=== PATIENT | female | born 1985 | race Caucasian/White ===

== ENCOUNTER 2017-11-15 02:30 | Inpatient (IN) | payer OTHER ==
[2017-11-15] MEDS ORDERED: BUTORPHANOL 1 MG/ML INJ IV PRN (02:48)
[2017-11-15] MEDS ORDERED: Ringers Lactate 1,000 ML IV PRN (02:48)
[2017-11-15] MEDS ORDERED: Ringers Lactate 1,000 ML IV SCH (03:00)
[2017-11-15 03:34] LABS: RPR Titer ND
[2017-11-15 03:37] LABS: Absolute Lymphocytes (CBC) 2.9 K/uL (0.7-4.9); Absolute Monocytes 0.8 K/uL (0.1-1.3); Absolute Neutrophil 10.5 K/uL (1.8-8.0); Basophils % 0.2 % (0-1.3); Eosinophils % 0.4 % (0-4.4); Hematocrit 41.6 % (36.0-45.0); Lymphocytes % 20.1 % (15.3-44.8); MCH 32.4 pg (27.0-35.0); MCV 93.4 fL (80-100); MPV 9.9 fL (7.6-11.3); Monocytes % 5.9 % (3.3-12.3); RBC Red Blood Cell Count 4.45 M/uL (3.86-4.86)
[2017-11-15] MEDS ORDERED: METHYLERGONOVINE 0.2MG/ML AMP IM PRN (04:14)
[2017-11-15] MEDS ORDERED: CARBOPROST TROME 250 MCG/ML IM PRN (04:14)
[2017-11-15] MEDS ORDERED: Oxycodone HCl/Acetaminophen 1 TAB TAB PO PRN (04:14)
[2017-11-15] MEDS ORDERED: METHYLERGONOVINE 0.2 MG TAB PO PRN (04:14)
[2017-11-15] MEDS ORDERED: ONDANSETRON 4 MG (ODT) TAB PO PRN (04:14)
--- NOTE | 2017-11-15 04:17 | P.BOP ---
Preoperative diagnosis: 38+ week , labor Postoperative diagnosis: same Primary procedure: SCVD viable male Secondary procedure: Right midline episiotomy and repair Estimated blood loss: Less than 300ml Anesthesia: Local Complications: None Transferred to: Other ([id number]) Condition: Good
[2017-11-15] MEDS ORDERED: LIDOCAINE 1% MPF 30 ML VIAL ONE (04:47)
[2017-11-15] MEDS: IBUPROFEN 200 MG TAB PO PRN ×3 (04:50→19:12)
[2017-11-15] MEDS ORDERED: OXYTOCIN/LR 20 UNIT/1,000 ML BAG IV SCH (05:00)
--- NOTE | 2017-11-15 06:03 | PREOPHP ---
Date of Admission: 11/15/2017 History Of Present Illness: Ms. Rosales is a 32-year-old female, 1, para 0, now at 38+ weeks' gestation. She has been followed by me during this without complicat ions until the development of gestational diabetes. This has been well controlled with diet alone an d has not required any other medicines. She presents to Labor and Delivery in active rapidly advanci ng labor, noted to be approximately 9 cm dilated. Past Medical History: Please see record. Family History: Please see record. Review of Systems: She reports no recent cough, cold, fever, or chills. She has had some nausea with the labor. She de nies any breast lumps. She denies any bowel or bladder issues. She has had a little bit of bleeding this evening once her labor started. has been active. Physical Examination: General: Reveals female in moderate discomfort. Neck: Supple, without adenopathy or thyromegaly. Lungs: Clear. Cardiac: Regular rate and rhythm without murmurs. Breasts: Not examined. Abdomen: Estimated weight of 7+ to 8 pounds. Pelvic: Cervix has anterior lip of cervix present, but is otherwise completely dilated, vertex prese ntation, at a +2 station. Extremities: A 2 to 3+ lower extremity edema bilaterally. Impression: A [id number] , gestational diabetes, active rapidly advancing labor. Plan: We will make preparation for delivery. TOAN/LIDIA Voice ID: [id number]
[2017-11-15 06:32] VITALS: BMI 33.5
[2017-11-15 22:21] LABS: RPR (Rapid Plasma Reagin) NON-REACT (NON-REACT)
[2017-11-16] MEDS ORDERED: IBUPROFEN 200 MG TAB PO ONE (01:29)
--- NOTE | 2017-11-16 05:43 | DN ---
Surgeon: Yoni Cantrell MD Ms. Rosales is a 32-year-old female, 1, para 0, at approximately 38+ week s gestation. She has been followed by me during the with complications of gestational diab etes. She noticed the onset of contractions earlier this evening and presents to Labor and Delivery, and is noted to be 9 cm on admission. She had spontaneous rupture of membranes shortly before prese nting to the hospital. has otherwise been active. She had a first stage of labor of approxim ately 4 hours and 9 minutes, second stage of labor of 1 hour and 15 minutes. She delivered by sponta neous controlled vaginal delivery an 8 pounds 5 ounce male infant, 8 and 9 with right midline e pisiotomy with local infiltration anesthesia. The infant was delivered vertex OA after delayed cord clamping. The cord was clamped, cut, and the infant placed on mother's upper abdomen. The cord bloo d was obtained. The placenta was spontaneously expelled and appeared to be intact. Intrauterine exa mination revealed no retained placental fragments. The episiotomy was repaired in usual fashion with 3-0 Vicryl suture. The patient tolerated procedures well, had received 1 mg of Stadol for analgesia prior to delivery. Estimated total blood loss was less than 300 cc. TOAN/LIDIA Voice ID: [id number] Report ID: [id number]
[2017-11-16] MEDS: IBUPROFEN 200 MG TAB PO PRN (08:05)
[2017-11-16 08:14] VITALS: BP 113/63; TEMP 97
--- NOTE | 2017-11-17 04:49 | DS ---
Date of Discharge: 11/16/2017 Final Hospital Discharge Diagnosis: A 39-week , delivered. Procedures: Spontaneous controlled vaginal delivery of a viable male infant, right midline episiotom y with repair. Hospital Course: The patient is a 32-year-old female, 1, para 0, at 38+ we eks gestation, admitted in active rapidly advancing labor, noted to be 9 cm on admission. She had a first stage of labor of approximately 4 hours, second stage of labor of 9 minutes. Delivered by spon taneous controlled vaginal delivery an 8-pound 5-ounce male infant, 8 and 9 over a right midlin e episiotomy with local infiltration. She has received 1 mg of Stadol for analgesia during her labor course. She was dismissed on her first day, ambulatory, on a select diet with routine po st vaginal delivery activity restrictions to be seen back in my office in 6 weeks. She is to continu e taking her iron and vitamins. Was dismissed with prescription for Tylenol No. 3, #15 for pain relief. Lab work included admission hemoglobin and hematocrit of 14.4/41.6. Her hem atocrit is pending. She had glucose fasting of 88 on admission and nonreactive RPR. She is Rh-posit el blood type. She was gestational diabetic, controlled by diet alone during her and cristina ined well controlled. She will be monitoring her sugars at home and will continue with her ADA diet. She was dismissed breast-feeding. To continue taking her iron and vitamins. TOAN/LIDIA Voice ID: [id number] Report ID: [id number]
[2017-11-17 18:14] LABS: HBsAG Nonreactive (Nonreactive)
== END 2017-11-16 11:10 | disposition home or self-care (01) | DRG 998 ==
LOC: 2ND-WC 02:30
PROVIDERS: ADMIT Specialist; ATTEND Specialist
PROC: 0W8NXZZ Division of Female Perineum, External Approach (ICD-10-PCS; principal; 2017-11-15)
DX: O24.429 Gestational diabetes mellitus in childbirth, unspecified control (principal); Z3A.38 38 weeks gestation of pregnancy; Z37.0 Single live birth
CPT/HCPCS: 36415; 82962; 85014; 85025; 86592; 86901; 87340; J0595; J2590